=== PATIENT | female | born 1995 | race Caucasian/White ===

== ENCOUNTER 2017-07-16 23:42 | Emergency (ER) | payer OTHER | END 2017-07-17 00:57 | disposition left against medical advice (07) | LOC: ER 23:42 | DX: Z53.9 Procedure and treatment not carried out, unspecified reason (principal); R10.9 Unspecified abdominal pain ==

== ENCOUNTER 2017-07-17 11:45 | Emergency (ER) | payer MEDICAID, OTHER ==
[2017-07-17 12:25] LABS: APPEARANCE,URINE SLIGHTLY-CLOUDY; BILIRUBIN,URINE NEGATIVE (NEGATIVE); GLUCOSE, URINE NEGATIVE (NEGATIVE); KETONES,URINE NEGATIVE (NEGATIVE); LEUKOCYTE ESTERASE,URINE NEGATIVE (NEGATIVE); NITRITE,URINE NEGATIVE (NEGATIVE); PROTEIN,URINE NEGATIVE (NEGATIVE); UROBILINOGEN,URINE NEGATIVE mg/dL (<2.0)
[2017-07-17 12:33] LABS: ABSOLUTE BASOPHILS # (AUTO) 0.1 10^3/uL (0.0-0.2); ABSOLUTE EOSINOPHILS # (AUTO) 0.1 10^3/uL (0.0-0.6); ABSOLUTE LYMPHOCYTES (AUTO) 2.3 10^3/uL (0.5-4.7); ABSOLUTE MONOCYTES (AUTO) 0.4 10^3/uL (0.1-1.4); ABSOLUTE NEUT (AUTO) 4.1 10^3/uL (1.7-8.2); EOSINOPHILS % (AUTO) 1.9 % (0-6); HEMATOCRIT 39.9 % (36.0-47.0); HEMOGLOBIN 13.9 g/dL (12.0-15.5); HGB HCT DIFFERENCE 1.8; LYMPHOCYTES % (AUTO) 33.1 % (13-45); MEAN CORPUSCULAR HEMOGLOBIN 28.3 pg (27.0-33.4); MEAN CORPUSCULAR VOLUME 81 fl (80-97); RED BLOOD COUNT 4.93 10^6/uL (3.72-5.28); RED CELL DISTRIBUTION WIDTH 13.9 % (11.5-14.0); WHITE BLOOD COUNT 7.1 10^3/uL (4.0-10.5)
[2017-07-17 12:45] LABS: ALANINE AMINOTRANSFERASE 35 U/L (9-52); ALBUMIN 4.1 g/dL (3.5-5.0); ALKALINE PHOSPHATASE 63 U/L (38-126); ANION GAP 10 (5-19); ASPARTATE AMINO TRANSFERASE 15 U/L (14-36); BILIRUBIN,DIRECT 0.3 mg/dL (0.0-0.4); BILIRUBIN,TOTAL 0.6 mg/dL (0.2-1.3); BLOOD UREA NITROGEN 9 mg/dL (7-20); CALCIUM 9.4 mg/dL (8.4-10.2); CARBON DIOXIDE 28 mmol/L (22-30); CHLORIDE 104 mmol/L (98-107); CREATININE RESULT 0.69 mg/dL (0.52-1.25); GLUCOSE 87 mg/dL (75-110); LIPASE 93.9 U/L (23-300); POTASSIUM 4.8 mmol/L (3.6-5.0); SODIUM 142.3 mmol/L (137-145); TOTAL PROTEIN 6.7 g/dL (6.3-8.2)
--- NOTE | 2017-07-17 13:18 | RADIOLOGY REPORT (SQ) ---
EXAM DESCRIPTION: U/S ABDOMEN LIMITED W/O DOP COMPLETED DATE/TIME: 07/17/2017 1:06 pm REASON FOR STUDY: ruq pain COMPARISON: None. TECHNIQUE: Dynamic and static grayscale images acquired of the abdomen and recorded on PACS. Additio nal selected color Doppler and spectral images recorded. LIMITATIONS: None. FINDINGS: PANCREAS: No masses. Visualized pancreatic duct normal caliber. LIVER: No masses. Echotexture normal. LIVER VASCULATURE: Normal blood flow is identified in the portal vein. GALLBLADDER: No stones. Normal wall thickness. No pericholecystic fluid. ULTRASOUND-DETECTED SANDOVAL'S SIGN: Negative. INTRAHEPATIC DUCTS AND COMMON DUCT: CBD and intrahepatic ducts normal caliber. No filling defects. INFERIOR VENA CAVA: Normal flow. AORTA: No aneurysm. RIGHT KIDNEY: Normal size. Normal echogenicity. No solid or suspicious masses. No hydronephrosis. No calcifications. PERITONEAL AND RIGHT PLEURAL SPACE: No ascites or effusions. OTHER: No other significant findings. IMPRESSION: NORMAL RIGHT UPPER QUADRANT ULTRASOUND. TECHNICAL DOCUMENTATION: JOB ID: [id number] [employer]- All Rights Reserved
[2017-07-17 13:24] VITALS: BP 121/69
--- NOTE | 2017-07-17 13:32 | ER Document Report ---
ED General - General Chief Complaint: Abdominal Pain Stated Complaint: STOMACH PAIN Time Seen by Provider: 07/17/17 12:04 TRAVEL OUTSIDE OF THE [place]. IN LAST 30 DAYS: No - HPI Patient complains to provider of: Abdominal pain Notes: Patient coming in today from local urgent care after experiencing mid epigastric abdominal pain ongoing for greater than a week patient states that as soon as she eats something she will have pain and nausea patient denies any fevers or chills denies any diarrhea. Patient states she has never seen a television newscast director. Patient otherwise looks very healthy no signs of any acute distress upon my evaluation. No recent antibiotics - Related Data Allergies/Adverse Reactions: latex [Latex] Allergy (Unknown, Verified 07/17/17 11:50) Hives Past Medical History - Social History Smoking Status: Unknown if Ever Smoked Family History: Reviewed & Not Pertinent - Past Medical History Cardiac Medical History: Denies: Hx Heart Attack, Hx Hypertension, Hx Pulmonary Embolism Pulmonary Medical History: Reports: Hx Asthma - Seasonal Denies: Hx Sleep Apnea, Hx Tuberculosis Neurological Medical History: Denies: Hx Cerebrovascular Accident, Hx Seizures Renal/ Medical History: Denies: Hx Kidney Stones, Hx Peritoneal Dialysis GI Medical History: Denies: Hx Gastroesophageal Reflux Disease, Hx Hepatitis, Hx Hiatal Hernia, Hx Ulcer Skin Medical History: Reports Hx MRSA - ON BUTTOCKS AND RIGHT FOOT Infectious Medical History: Denies: Hx Hepatitis Past Surgical History: Reports: Hx Section - X1. Denies: Hx Hysterectomy, Hx Mastectomy, Hx Open Heart Surgery, Hx Pacemaker - Immunizations Immunizations up to date: Yes Hx Diphtheria, Pertussis, Tetanus Vaccination: Yes Review of Systems - Review of Systems Constitutional: No symptoms reported EENT: No symptoms reported Cardiovascular: No symptoms reported Respiratory: No symptoms reported Gastrointestinal: Abdominal pain, Nausea, Vomiting Genitourinary: No symptoms reported Female Genitourinary: No symptoms reported Musculoskeletal: No symptoms reported Skin: No symptoms reported Hematologic/Lymphatic: No symptoms reported Neurological/Psychological: No symptoms reported -: Yes All other systems reviewed and negative Physical Exam - Vital signs Vitals: Temp Pulse Resp BP Pulse Ox 97.5 F 86 18 124/80 100 07/17/17 11:50 07/17/17 11:50 07/17/17 11:50 07/17/17 11:50 07/17/17 11:50 Interpretation: Normal - General General appearance: Appears well, Alert - HEENT Head: Normocephalic, Atraumatic Eyes: Normal Pupils: PERRL - Respiratory Respiratory status: No respiratory distress Chest status: Nontender Breath sounds: Normal Chest palpation: Normal - Cardiovascular Rhythm: Regular Heart sounds: Normal auscultation Murmur: No - Abdominal Inspection: Normal Distension: No distension Bowel sounds: Normal Tenderness: Nontender Organomegaly: No organomegaly - Back Back: Normal, Nontender - Extremities General upper extremity: Normal inspection, Nontender, Normal color, Normal ROM , Normal temperature General lower extremity: Normal inspection, Nontender, Normal color, Normal ROM , Normal temperature, Normal weight bearing. No: Reji's sign - Neurological Neuro grossly intact: Yes Cognition: Normal Orientation: AAOx4 Merlyn Coma Scale Eye Opening: Spontaneous Merlyn Coma Scale Verbal: Oriented Rush Coma Scale Motor: Obeys Commands Rush Coma Scale Total: 15 Speech: Normal Motor strength normal: LUE, RUE, LLE, RLE Sensory: Normal - Psychological Associated symptoms: Normal affect, Normal mood - Skin Skin Temperature: Warm Skin Moisture: Dry Skin Color: Normal Course - Re-evaluation Re-evalutation: 07/17/17 13:32 The patient presents with abdominal pain without signs of peritonitis or other life-threatening or serious etiology. The patient appears stable for discharge and has been instructed to return immediately if the symptoms worsen in any way , or in 8-12hr if not improved for re-evaluation. The patient has been instructed to return if the symptoms worsen or change in any way. Symptoms are more consistent with a gastritis or possible early peptic ulcer disease. Patient was highly encouraged to follow-up with a GI specialist. We will start the patient on Reglan Carafate and PPI. Patient states understanding will be discharged home. - Vital Signs Vital signs: Temp Pulse Resp BP Pulse Ox 98.1 F 87 18 121/69 99 07/17/17 13:23 07/17/17 13:23 07/17/17 11:50 07/17/17 13:23 07/17/17 13:23 - Laboratory Result Diagrams: 07/17/17 12:18 07/17/17 12:18 Discharge - Discharge Clinical Impression: Abdominal pain Qualifiers: Abdominal location: unspecified location Qualified Code(s): R10.9 - Unspecified abdominal pain Condition: Good Disposition: HOME, SELF-CARE Instructions: Abdominal Pain ([facility]), Gastritis ([facility]), Gastroenterology Additional Instructions: Your laboratory studies and ultrasound today are negative for any signs of acute infection or GI issue. I do believe her symptoms more likely coming from her stomach unfortunately we do not have a good way to diagnose issues with your stomach here in the ER. I recommend following up with a GI specialist. Please take medications as prescribed these will treat any underlying gastritis or peptic ulcer disease which may be causing her issues. Return to the ER symptoms worsen. Prescriptions: Metoclopramide HCl [Reglan] 5 mg PO Q6 #30 tablet Omeprazole 20 mg PO DAILY #30 capsule. Sucralfate [Carafate 1 gm Tablet] 1 gm PO ACHS #120 tablet Forms: Return to Work
== END 2017-07-17 13:34 | disposition home or self-care (01) ==
LOC: ER 11:45
DX: R10.13 Epigastric pain (principal); R11.2 Nausea with vomiting, unspecified; J45.909 Unspecified asthma, uncomplicated; Z91.040 Latex allergy status; Z86.14 Personal history of Methicillin resistant Staphylococcus aureus infection
CPT/HCPCS: 36415; 76705; 80053; 81001; 81025; 83690; 85025; 99284

== ENCOUNTER 2017-11-27 12:53 | Emergency (ER) | payer MEDICAID ==
[2017-11-27] MEDS ORDERED: ONDANSETRON 4 MG TAB.RAPDIS PO ONE (13:19)
[2017-11-27] MEDS ORDERED: RINGERS SOLUTION,LACTATED 1,000 ML IV ONE (13:19)
--- NOTE | 2017-11-27 13:21 | ER Document Report ---
ED Medical Screen (RME) - General Chief Complaint: OB Problem (<20wks) Stated Complaint: VAGINAL BLEEDING Time Seen by Provider: 11/27/17 13:16 Notes: RME DISCLOSURE I have seen this patient as part of a Rapid Medical Evaluation and, if applicable, placed any initially appropriate orders. The patient will be seen and fully evaluated, including a full history and physical exam, by a provider ( in Main ED or Fast Track) when a room becomes available. 22-year-old female here with complaints of vaginal spotting ongoing for the past few days as well as nausea/vomiting ongoing for the past few weeks. She has had the nausea and vomiting in her previous 2 pregnancies and was able to taken antiemetic but does not remember the name of it. She has not taken anything for the symptoms. She does not have any abdominal pain. TRAVEL OUTSIDE OF THE U.S. IN LAST 30 DAYS: No - Related Data Allergies/Adverse Reactions: latex [Latex] Allergy (Unknown, Verified 11/27/17 12:57) Hives Past Medical History - Social History Chew tobacco use (# tins/day): No Frequency of alcohol use: None Drug Abuse: None - Past Medical History Cardiac Medical History: Denies: Hx Heart Attack, Hx Hypertension, Hx Pulmonary Embolism Pulmonary Medical History: Reports: Hx Asthma - Seasonal Denies: Hx Sleep Apnea, Hx Tuberculosis Neurological Medical History: Denies: Hx Cerebrovascular Accident, Hx Seizures Renal/ Medical History: Denies: Hx Kidney Stones, Hx Peritoneal Dialysis GI Medical History: Denies: Hx Gastroesophageal Reflux Disease, Hx Hepatitis, Hx Hiatal Hernia, Hx Ulcer Skin Medical History: Reports Hx MRSA - ON BUTTOCKS AND RIGHT FOOT Infectious Medical History: Denies: Hx Hepatitis Past Surgical History: Reports: Hx Section - X1. Denies: Hx Hysterectomy, Hx Mastectomy, Hx Open Heart Surgery, Hx Pacemaker - Immunizations Immunizations up to date: Yes Hx Diphtheria, Pertussis, Tetanus Vaccination: Yes Physical Exam - Vital signs Vitals: Temp Pulse Resp BP Pulse Ox 98.8 F 86 16 134/66 H 100 11/27/17 13:01 11/27/17 13:01 11/27/17 13:01 11/27/17 13:01 11/27/17 13:01 Course - Vital Signs Vital signs: Temp Pulse Resp BP Pulse Ox 98.8 F 86 16 134/66 H 100 11/27/17 13:01 11/27/17 13:01 11/27/17 13:01 11/27/17 13:01 11/27/17 13:01
[2017-11-27] MEDS ORDERED: ONDANSETRON HCL INJ/PF 4 MG/2 ML SDV IV ONE (13:50)
--- NOTE | 2017-11-27 13:51 | ER Document Report ---
ED General - General Chief Complaint: OB Problem (<20wks) Stated Complaint: VAGINAL BLEEDING Time Seen by Provider: 11/27/17 13:16 Mode of Arrival: Ambulatory Information source: Patient TRAVEL OUTSIDE OF THE [place]. IN LAST 30 DAYS: No - HPI Notes: 22-year-old female who is 7 weeks presents today for complaints of vaginal spotting 1 day. Patient states spotting has decreased today. Patient denies any pelvic or vaginal pain. Last menstrual period was September. Patient is taking all prenatals. Denies any trauma to pelvis. Pt eating and drinking without issues. Denies fevers, chills, chest pain, palpitations, shortness of breath, dyspnea, nausea, vomiting, diarrhea, abdominal pain, hematuria,blurred vision, double vision, loss of vision, speech changes, LH, dizziness, syncope, headaches, wheezing, ST, URI, neck pain, weakness, bowel or bladder dysfunction, saddle anesthesia, numbness or tingling in bilateral upper or lower extremities equally, muscle paralysis, weakness in bilateral upper or lower extremities equally or rash. Denies IV drug use. - Related Data Allergies/Adverse Reactions: latex [Latex] Allergy (Unknown, Verified 11/27/17 12:57) Hives Past Medical History - General Information source: Patient - Social History Smoking Status: Never Smoker Chew tobacco use (# tins/day): No Frequency of alcohol use: None Drug Abuse: None Family History: Reviewed & Not Pertinent Patient has suicidal ideation: No Patient has homicidal ideation: No - Past Medical History Cardiac Medical History: Denies: Hx Heart Attack, Hx Hypertension, Hx Pulmonary Embolism Pulmonary Medical History: Reports: Hx Asthma - Seasonal Denies: Hx Sleep Apnea, Hx Tuberculosis Neurological Medical History: Denies: Hx Cerebrovascular Accident, Hx Seizures Renal/ Medical History: Denies: Hx Kidney Stones, Hx Peritoneal Dialysis GI Medical History: Denies: Hx Gastroesophageal Reflux Disease, Hx Hepatitis, Hx Hiatal Hernia, Hx Ulcer Skin Medical History: Reports Hx MRSA - ON BUTTOCKS AND RIGHT FOOT Infectious Medical History: Denies: Hx Hepatitis Past Surgical History: Reports: Hx Section - X1. Denies: Hx Hysterectomy, Hx Mastectomy, Hx Open Heart Surgery, Hx Pacemaker - Immunizations Immunizations up to date: Yes Hx Diphtheria, Pertussis, Tetanus Vaccination: Yes Review of Systems - Review of Systems Notes: REVIEW OF SYSTEMS: CONSTITUTIONAL : Denies fever, chills, or sweats. Denies recent illness. EENT: Denies eye, ear, throat, or mouth pain or symptoms. Denies nasal or sinus congestion or discharge. Denies throat, tongue, or mouth swelling or difficulty swallowing. CARDIOVASCULAR: Denies chest pain. Denies palpitations or racing or irregular heart beat. Denies ankle edema. RESPIRATORY: Denies cough, cold, or chest congestion. Denies shortness of breath, difficulty breathing, or wheezing. GASTROINTESTINAL: Denies abdominal pain or distention. Denies nausea, vomiting , or diarrhea. Denies blood in vomitus, stools, or per rectum. Denies black, tarry stools. Denies constipation. GENITOURINARY: Denies difficulty urinating, painful urination, burning, frequency, blood in urine, or discharge. FEMALE GENITOURINARY: reports vaginal spotting. Denies heavy or abnormal periods, irregular periods. Denies vaginal discharge or odor. MUSCULOSKELETAL: Denies back or neck pain or stiffness. Denies joint pain or swelling. SKIN: Denies rash, lesions or sores. HEMATOLOGIC : Denies easy bruising or bleeding. LYMPHATIC: Denies swollen, enlarged glands. NEUROLOGICAL: Denies confusion or altered mental status. Denies passing out or loss of consciousness. Denies dizziness or lightheadedness. Denies headache. Denies weakness or paralysis or loss of use of either side. Denies problems with gait or speech. Denies sensory loss, numbness, or tingling. Denies seizures. PSYCHIATRIC: Denies anxiety or stress. Denies depression, suicidal ideation, or homicidal ideation. ALL OTHER SYSTEMS REVIEWED AND NEGATIVE. PHYSICAL EXAMINATION: GENERAL: Well-appearing, well-nourished and in no acute distress. HEAD: Atraumatic, normocephalic. EYES: Pupils equal round and reactive to light, extraocular movements intact, conjunctiva are normal. ENT: Nares patent, oropharynx clear without exudates. Moist mucous membranes. NECK: Normal range of motion, supple without lymphadenopathy LUNGS: Breath sounds clear to auscultation bilaterally and equal. No wheezes rales or rhonchi. HEART: Regular rate and rhythm without murmurs ABDOMEN: Soft, nontender, nondistended abdomen. No guarding, no rebound. No masses appreciated. Female :External genitalia without erythema, exudate or discharge. Vaginal vault is without discharge. Cervix is of normal color without lesion. There is no bleeding noted. Uterus is noted to be of normal size and nontender. No cervical motion tenderness is seen. No masses are palpated. Musculoskeletal: Normal range of motion, no pitting or edema. No cyanosis. NEUROLOGICAL: Cranial nerves grossly intact. Normal speech, normal gait. Normal sensory, motor exams PSYCH: Normal mood, normal affect. SKIN: Warm, Dry, normal turgor, no rashes or lesions noted. Dictation was performed using [employer] voice recognition software Physical Exam - Vital signs Vitals: Temp Pulse Resp BP Pulse Ox 98.8 F 86 16 134/66 H 100 11/27/17 13:01 11/27/17 13:01 11/27/17 13:11/27/17 13:01 11/27/17 13:01 Course - Re-evaluation Re-evalutation: 11/27/17 16:13 Healthy 22-year-old female who is roughly 7 weeks presents today for complaints of vaginal spotting that started yesterday. CBC unremarkable for any anemia or leukocytosis. CMP shows dysfunction with renal or liver abnormalities. Electrolytes are within normal range. Wet mount does show the patient has bacterial vaginosis. Patient is asymptomatic for bacterial vaginosis. Transvaginal ultrasound shows a patient does have a intrauterine with a heart rate of 135. Patient is O+, no gram needed. Quantitative hCG 111,780. Because these results with patients. Advised her to follow-up with her [employer] SALESPERSON and her primary care provider within 3 days. Since patient is having asymptomatic bacterial vaginosis, will not treat at this time due to patient being . Because findings with patient, all questions and concerns answered by this provider. Patient verbalized understanding of this plan of care and agree with plan of care. Patient was discharged home. 11/27/17 17:14 - Vital Signs Vital signs: Temp Pulse Resp BP Pulse Ox 98.8 F 86 16 134/66 H 100 11/27/17 13:01 11/27/17 13:01 11/27/17 13:01 11/27/17 13:01 11/27/17 13:01 - Laboratory Laboratory results interpreted by me: 11/27/17 11/27/17 13:40 14:11 Beta HCG, Quant [id number] H Urine Ascorbic Acid 40 H Discharge - Discharge Instructions: (OM) Additional Instructions: You are . care is best started as early in as possible. If you're unsure about continuing this , you should discuss this with your physician or with highway patrol pilot at [facility]. You should take only medications approved by your physician. Acetaminophen can safely be taken for minor pains. As a rule, medication for chronic conditions such as asthma or seizures can safely be continued. You should discuss with the physician every medicine you take. Any regular exercise program can be continued. Talk to your physician, however, before engaging in competitive or demanding sports. Alcohol, smoking, and "street drugs" are dangerous to your baby. Cocaine is especially dangerous. Don't use any illicit drugs! Vaginosis, Bacterial Your exam shows you have bacterial vaginosis. This condition is due to an overgrowth of bacteria in the vagina. Symptoms may include vaginal itching or pain, a smelly discharge, and sometimes burning with urination. Normally this is not transmitted by sexual contact. Vaginosis can be treated with oral or topical antibiotics. Metronidazole ( Flagyl) pills are usually effective. Topical vaginal creams include Cleocin and Metro-Gel. You should avoid sexual contact until your symptoms are all better. YOU ARE NOT SYMPTOMATIC, WILL NOT TREAT DUE TO . Call the doctor if you develop pelvic pain, fever, or problems with urination, or if you don't improve as expected. Follow-up with [employer] SAL[employer]ERSON within 3 days as well as PCP. Increase oral hydration. Take prenatals as you have been doing. Return to the ER if symptoms become worse. Return immediately for any new or worsening symptoms. Follow up with primary care provider, call tomorrow to make followup appointment. Prescriptions: Pnv No.95/Ferrous Fum/Folic AC [ Tablet] 1 each PO DAILY #30 tablet Referrals: YASSINE BARRON MD [ACTIVE STAFF] - Follow up in 3-5 days DAYANNA RIOS MD [Primary Care Provider] - Follow up in 3-5 days
[2017-11-27 13:52] LABS: AMORPHOUS SEDIMENT,URINE TRACE /HPF; APPEARANCE,URINE CLOUDY; BILIRUBIN,URINE NEGATIVE (NEGATIVE); COLOR,URINE YELLOW; GLUCOSE, URINE NEGATIVE (NEGATIVE); KETONES,URINE NEGATIVE (NEGATIVE); LEUKOCYTE ESTERASE,URINE NEGATIVE (NEGATIVE); NITRITE,URINE NEGATIVE (NEGATIVE); PROTEIN,URINE NEGATIVE (NEGATIVE); URINE SPECIFIC GRAVITY 1.015; UROBILINOGEN,URINE NEGATIVE mg/dL (<2.0)
[2017-11-27] MEDS ORDERED: NORMAL SALINE 1000 ML 1,000 ML IV ONE (14:25)
[2017-11-27 16:07] LABS: BACTERIA (WET MOUNT) 3+ BACTERIA SEEN; EPITHELIALS (WET MOUNT) 3+ EPITHELIALS SEEN; T.VAGINALIS (WET MOUNT) NO TRICHOMONAS SEEN; WBCS (WET MOUNT) RARE WBCS SEEN; YEAST (WET MOUNT) NO YEAST SEEN
--- NOTE | 2017-11-27 16:11 | RADIOLOGY REPORT (SQ) ---
EXAM DESCRIPTION: U/S OB TRANSVAGINAL W/O DOP COMPLETED DATE/TIME: 11/27/2017 4:00 pm REASON FOR STUDY: vag spotting; eval ectopic miscarriage COMPARISON: None. TECHNIQUE: Transvaginal static and realtime grayscale images acquired of the pelvis. Additional radha cted spectral and color Doppler images recorded. All images stored on PACs. bHC,780. LIMITATIONS: None. FINDINGS: FETUS: Living intrauterine . EGA: 7 week. VIRIDIAAN: 07/16/2018. FHR: 135 beats per minute. SUBCHORIONIC BLEED: No. SIZE OF BLEED: Not applicable. UTERUS: No masses. No anomalies. CERVICAL LENGTH: 3.4 cm. Closed. RIGHT ADNEXA: Normal ovary with normal vascular flow. No adnexal free fluid. No adnexal masses. LEFT ADNEXA: Normal ovary with normal vascular flow. Trace/small amount adnexal free fluid. No adnexal masses. FREE FLUID: None. OTHER: No other significant finding. IMPRESSION: LIVING INTRAUTERINE . EGA 7 WEEK. Trimester of : First - 0 to 13 weeks. TECHNICAL DOCUMENTATION: JOB ID: [id number] [employer]- All Rights Reserved Reading location - IP/workstation name: [email or web address]
[2017-11-27 17:15] LABS: CHLAM PCR NOT DETECTED (NOT DETECT); GON PCR NOT DETECTED (NOT DETECT)
[2017-11-27 17:30] VITALS: BP 130/67
== END 2017-11-27 17:30 | disposition home or self-care (01) ==
LOC: ER 12:53
DX: O23.591 Infection of other part of genital tract in pregnancy, first trimester (principal); B96.89 Other specified bacterial agents as the cause of diseases classified elsewhere; O26.851 Spotting complicating pregnancy, first trimester; O99.511 Diseases of the respiratory system complicating pregnancy, first trimester; J45.909 Unspecified asthma, uncomplicated; Z3A.01 Less than 8 weeks gestation of pregnancy
CPT/HCPCS: 99284; 96361; 96374; 86900; 86901; 36415; 87210; 84702; 81001; 87491; 87591; 76817; J2405; J7030

== ENCOUNTER 2018-05-27 22:08 | Outpatient (CLI) | payer MEDICAID ==
[2018-05-27 23:06] LABS: APPEARANCE,URINE CLEAR; BILIRUBIN,URINE NEGATIVE (NEGATIVE); COLOR,URINE STRAW; GLUCOSE, URINE NEGATIVE (NEGATIVE); KETONES,URINE NEGATIVE (NEGATIVE); LEUKOCYTE ESTERASE,URINE NEGATIVE (NEGATIVE); NITRITE,URINE NEGATIVE (NEGATIVE); PROTEIN,URINE NEGATIVE (NEGATIVE); URINE SPECIFIC GRAVITY 1.008; UROBILINOGEN,URINE NEGATIVE mg/dL (<2.0)
[2018-05-27 23:08] LABS: URINE AMPHETAMINES SCREEN NEGATIVE; URINE BARBITURATES SCREEN NEGATIVE; URINE BENZODIAZEPINES SCREEN NEGATIVE; URINE COCAINE SCREEN NEGATIVE; URINE MARIJUANA (THC) SCREEN NEGATIVE; URINE METHADONE SCREEN NEGATIVE; URINE PHENCYCLIDINE SCREEN NEGATIVE
--- NOTE | 2018-05-28 00:44 | RADIOLOGY REPORT (SQ) ---
EXAM DESCRIPTION: US LIMITED COMPLETED DATE/TME: 05/27/2018 00:00 CLINICAL HISTORY: 23 years, Female, labor. 10/04/2017 COMPARISON: None. TECHNIQUE: Limited third trimester obstetrical ultrasound FINDINGS: Cervical length 2.7 cm and closed. position: Vertex LVP: 3.6 cm heart rate: 162 bpm. Placenta: Anterior, no definite abnormalities. IMPRESSION: 1. Single live intrauterine with heart rate of 162 bpm. Measurements as above. 2010 [employer]- All Rights Reserved
--- NOTE | 2018-05-28 01:09 | Non Stress Test Report ---
Non Stress Test Datetime Report Generated by CPN: 05/28/2018 01:09 DEMOGRAPHIC EGA NST: 33.2 INDICATION Indication for Study: Ordered by Provider MONITORING Monitor Explained: Monitor Explained; Test Explained; Patient Verbalized Understanding Time on Monitor: 05/27/2018 22:30 Time off Monitor: 05/27/2018 23:10 NST Duration: 40 NST INTERVENTIONS NST Interventions: Reposition Patient Physician Notified NST: Dr. Ferris BABY A: [id number] BABY A Movement : Present Contraction Frequency : none FHR Baseline : 135 Accelerations : 15X15 Decelerations : None Variability : Moderate 6-25bpm NST Review: Meets Criteria for Reactive NST NST Review and Verified By : Zuhair Miller RN NST Results: Reactive NST REPORT Report Trigger: Send Report
== END 2018-05-28 01:04 | disposition home or self-care (01) ==
LOC: LC 22:08
PROVIDERS: ATTEND Obstetrics & Gynecology
DX: O47.1 False labor at or after 37 completed weeks of gestation (principal); Z3A.33 33 weeks gestation of pregnancy
CPT/HCPCS: 76815; 80307; 81001

== ENCOUNTER 2018-06-21 23:00 | Outpatient (CLI) | payer MEDICAID ==
[2018-06-21 23:50] LABS: APPEARANCE,URINE CLEAR; BILIRUBIN,URINE NEGATIVE (NEGATIVE); COLOR,URINE YELLOW; GLUCOSE, URINE NEGATIVE (NEGATIVE); KETONES,URINE NEGATIVE (NEGATIVE); LEUKOCYTE ESTERASE,URINE NEGATIVE (NEGATIVE); NITRITE,URINE NEGATIVE (NEGATIVE); PROTEIN,URINE NEGATIVE (NEGATIVE); URINE SPECIFIC GRAVITY 1.015; UROBILINOGEN,URINE NEGATIVE mg/dL (<2.0)
[2018-06-22 00:02] LABS: URINE AMPHETAMINES SCREEN NEGATIVE; URINE BARBITURATES SCREEN NEGATIVE; URINE BENZODIAZEPINES SCREEN NEGATIVE; URINE COCAINE SCREEN NEGATIVE; URINE MARIJUANA (THC) SCREEN NEGATIVE; URINE METHADONE SCREEN NEGATIVE; URINE PHENCYCLIDINE SCREEN NEGATIVE
--- NOTE | 2018-06-25 11:17 | Non Stress Test Report ---
Non Stress Test Datetime Report Generated by CPN: 06/25/2018 11:17 DEMOGRAPHIC Test Number: 2 EGA NST: 37.1 INDICATION Indication for Study: Ordered by Provider URINE RESULTS Urine Protein, NST: Negative Urine Ketones - NST: Negative Urine Glucose - NST: Negative Urine Blood - NST: Negative MONITORING Monitor Explained: Monitor Explained; Test Explained; Patient Verbalized Understanding Time on Monitor: 06/21/2018 23:25 Time off Monitor: 06/22/2018 00:13 NST Duration: 48 NST INTERVENTIONS NST Interventions: PO Hydration; Reposition Patient Physician Notified NST: Dr. Reveles BABY A: [id number] BABY A Movement : Present Contraction Frequency : x1 FHR Baseline : 135 Accelerations : 15X15 Decelerations : None Variability : Moderate 6-25bpm NST Review: Meets Criteria for Reactive NST NST Review and Verified By : Luz Hammer RN NST Results: Reactive NST REPORT Report Trigger: Send Report (Annotations: Data stored by N on behalf of user)
== END 2018-06-22 00:30 | disposition home or self-care (01) ==
LOC: LC 23:00
PROVIDERS: ATTEND Obstetrics & Gynecology Gynecology
PROC: 4A1HXCZ Monitoring of Products of Conception, Cardiac Rate, External Approach (ICD-10-PCS; principal; 2018-06-21)
DX: O47.1 False labor at or after 37 completed weeks of gestation (principal); Z3A.37 37 weeks gestation of pregnancy
CPT/HCPCS: 59025; 80307; 81001

== ENCOUNTER 2018-06-25 11:19 | Outpatient (CLI) | payer MEDICAID ==
[2018-06-25 12:15] LABS: APPEARANCE,URINE SLIGHTLY-CLOUDY; BILIRUBIN,URINE NEGATIVE (NEGATIVE); COLOR,URINE YELLOW; GLUCOSE, URINE NEGATIVE (NEGATIVE); KETONES,URINE NEGATIVE (NEGATIVE); LEUKOCYTE ESTERASE,URINE MODERATE (NEGATIVE); NITRITE,URINE NEGATIVE (NEGATIVE); PROTEIN,URINE NEGATIVE (NEGATIVE); URINE SPECIFIC GRAVITY 1.006; UROBILINOGEN,URINE NEGATIVE mg/dL (<2.0)
--- NOTE | 2018-06-25 12:23 | L&D Progress Notes ---
PROGRESS NOTES Datetime Report Generated by CPN: 06/25/2018 12:23 PROGRESS NOTE Comment: here for labor check, sporadic care, has appt at [facility] in AM for anatomy scan and schedule C/S, back hurts, does not appear in pain, abd soft, Cat 1 strip, irreg uc's, waiting for UA results SIGNATURE SIGNATURE: [id number] SIGNATURE: [id number] SIGNATURE: [id number] Assignment: Yuriy Reveles MD Signature: with User ID: [email or web address] : with User ID: Irvin
[2018-06-25 12:40] LABS: URINE AMPHETAMINES SCREEN NEGATIVE; URINE BENZODIAZEPINES SCREEN NEGATIVE; URINE COCAINE SCREEN NEGATIVE; URINE MARIJUANA (THC) SCREEN NEGATIVE; URINE METHADONE SCREEN NEGATIVE; URINE PHENCYCLIDINE SCREEN NEGATIVE
[2018-06-25 12:43] LABS: URINE BARBITURATES SCREEN NEGATIVE
--- NOTE | 2018-06-25 13:06 | Non Stress Test Report ---
Non Stress Test Datetime Report Generated by CPN: 06/25/2018 13:06 DEMOGRAPHIC EGA NST: 37.5 INDICATION Indication for Study: Other Indication for Study (NST) Other: ordered by provider VITAL SIGNS Temperature - NST: 98.5 Pulse - NST: 106 RESP - NST: 16 NBPSYS NST: 116 NBPDIA NST: 58 URINE RESULTS Urine Protein, NST: Negative Urine Ketones - NST: Negative Urine Glucose - NST: Negative Urine Blood - NST: Positive MONITORING Monitor Explained: Monitor Explained; Test Explained; Patient Verbalized Understanding Time on Monitor: 06/25/2018 11:41 Time off Monitor: 06/25/2018 12:00 NST Duration: 19 NST INTERVENTIONS NST Interventions: Reposition Patient Physician Notified NST: J Dennis, CNM BABY A Movement : Present Contraction Frequency : irregular FHR Baseline : 150 Accelerations : 15X15 Decelerations : None Variability : Moderate 6-25bpm NST Review: Meets Criteria for Reactive NST NST Review and Verified By : Carina Camp RNC NST Results: Reactive NST REPORT Report Trigger: Send Report
== END 2018-06-25 12:58 | disposition home or self-care (01) ==
LOC: LC 11:19
PROVIDERS: ATTEND Obstetrics & Gynecology Gynecology
PROC: 4A1HXCZ Monitoring of Products of Conception, Cardiac Rate, External Approach (ICD-10-PCS; principal; 2018-06-25)
DX: O23.43 Unspecified infection of urinary tract in pregnancy, third trimester (principal); O47.1 False labor at or after 37 completed weeks of gestation; Z3A.37 37 weeks gestation of pregnancy
CPT/HCPCS: 59025; 80307; 81001

== ENCOUNTER 2018-07-06 06:32 | Inpatient (IN) | payer MEDICAID ==
[2018-07-03 11:09] LABS: APPEARANCE,URINE CLOUDY; BILIRUBIN,URINE NEGATIVE (NEGATIVE); COLOR,URINE YELLOW; GLUCOSE, URINE NEGATIVE (NEGATIVE); KETONES,URINE NEGATIVE (NEGATIVE); LEUKOCYTE ESTERASE,URINE LARGE (NEGATIVE); NITRITE,URINE NEGATIVE (NEGATIVE); PROTEIN,URINE NEGATIVE (NEGATIVE); UROBILINOGEN,URINE NEGATIVE mg/dL (<2.0)
[2018-07-03 11:42] LABS: URINE AMPHETAMINES SCREEN NEGATIVE; URINE BARBITURATES SCREEN NEGATIVE; URINE BENZODIAZEPINES SCREEN NEGATIVE; URINE COCAINE SCREEN NEGATIVE; URINE MARIJUANA (THC) SCREEN NEGATIVE; URINE METHADONE SCREEN NEGATIVE; URINE PHENCYCLIDINE SCREEN NEGATIVE
[2018-07-03 11:51] LABS: ABSOLUTE BASOPHILS # (AUTO) 0.1 10^3/uL (0.0-0.2); ABSOLUTE EOSINOPHILS # (AUTO) 0.1 10^3/uL (0.0-0.6); ABSOLUTE LYMPHOCYTES (AUTO) 1.9 10^3/uL (0.5-4.7); ABSOLUTE MONOCYTES (AUTO) 0.5 10^3/uL (0.1-1.4); ABSOLUTE NEUT (AUTO) 8.6 10^3/uL (1.7-8.2); BASOPHILS % (AUTO) 0.5 % (0-2); EOSINOPHILS % (AUTO) 0.5 % (0-6); HEMATOCRIT 32.6 % (36.0-47.0); LYMPHOCYTES % (AUTO) 16.9 % (13-45); MEAN CORPUSCULAR HEMOGLOBIN 26.7 pg (27.0-33.4); MEAN CORPUSCULAR HGB CONC 33.8 g/dL (32.0-36.0); MEAN CORPUSCULAR VOLUME 79 fl (80-97); MONOCYTES % (AUTO) 4.3 % (3-13); PLATELET COUNT 272 10^3/uL (150-450); RED BLOOD COUNT 4.13 10^6/uL (3.72-5.28); RED CELL DISTRIBUTION WIDTH 13.1 % (11.5-14.0); SEGMENTED NEUTROPHILS % (AUTO) 77.8 % (42-78); TOTAL CELLS COUNTED % (AUTO) 100 %; WHITE BLOOD COUNT 11.1 10^3/uL (4.0-10.5)
[~2018-07-06 06:32] MED LIST: CEFAZOLIN 1 GM/D5W RTU 1 GM/50 ML RTUPB IV PRN; LACTATED RINGERS 1000 ML IV PRN; RINGERS SOLUTION,LACTATED 2,000 ML IV PRN
[2018-07-06] MEDS ORDERED: OXYTOCIN 10 UNIT/ML VIAL ONE (09:03)
[2018-07-06] MEDS ORDERED: KETOROLAC TROMETHAMINE INJ/PF 30 MG/1 ML SDV ONE (09:03)
[2018-07-06] MEDS ORDERED: FENTANYL CITRATE INJ/PF 100 MCG/2 ML AMPUL ONE (09:03)
[2018-07-06] MEDS ORDERED: ACETAMINOPHEN 1,000 MG/100 ML RTUPB IV ONE (09:04)
[2018-07-06] MEDS ORDERED: MIDAZOLAM 2 MG/2 ML INJ ONE (09:04)
[2018-07-06] MEDS ORDERED: OXYTOCIN/NORMAL SALINE 20 UNIT/1,000 ML RTUINJ ONE ×2 (09:04→11:23)
[2018-07-06] MEDS ORDERED: METHYLERGONOVINE MALEATE INJ/PF 0.2 MG/1 ML AMPULE ONE (09:04)
[2018-07-06] MEDS ORDERED: ONDANSETRON HCL INJ/PF 4 MG/2 ML SDV ONE (09:04)
[2018-07-06] MEDS ORDERED: EPHEDRINE SULFATE INJ 50 MG/1 ML AMPULE ONE (09:04)
[2018-07-06] MEDS ORDERED: BUPIVACAINE HCL/DEX-WATER/PF 15 MG/2 ML AMPULE ONE (09:11)
[2018-07-06] MEDS ORDERED: CEFAZOLIN INJ 1 GM VIAL ONE (09:18)
[2018-07-06] MEDS ORDERED: MEPERIDINE HCL/PF INJ 25 MG/1 ML DISP.SYRIN IV PRN (09:33)
[2018-07-06] MEDS ORDERED: MORPHINE SULFATE 10 MG/ML INJ IV PRN ×2 (09:33→14:26)
[2018-07-06] MEDS ORDERED: FENTANYL CITRATE INJ/PF 100 MCG/2 ML AMPUL IV PRN ×3 (09:33)
[2018-07-06] MEDS ORDERED: DIPHENHYDRAMINE HCL 50 MG/ML VIAL IV PRN (09:33)
[2018-07-06] MEDS ORDERED: PROMETHAZINE HCL INJ 25 MG/1 ML VIAL IV PRN ×3 (09:33→11:01)
[2018-07-06] MEDS ORDERED: ONDANSETRON HCL INJ/PF 4 MG/2 ML SDV IV PRN (09:33)
[2018-07-06] MEDS ORDERED: OXYCODONE-ACETAMINOPHEN 5-325 MG TABLET PO PRN ×3 (09:33→11:01)
[2018-07-06] MEDS ORDERED: MEASLES,MUMPS&RUBELLA VACC/PF 0.5 ML VIAL SUBCUT PRN (11:01)
[2018-07-06] MEDS ORDERED: OXYTOCIN/NORMAL SALINE 20 UNIT/1,000 ML RTUINJ IV PRN (11:01)
[2018-07-06] MEDS ORDERED: SIMETHICONE 80 MG TAB.CHEW PO PRN (11:01)
[2018-07-06] MEDS ORDERED: DIPH/PERTUSS(ACELL)/TETANUS VAC/PF 0.5 ML SYR (>=10YO) IM PRN (11:01)
[2018-07-06] MEDS ORDERED: ACETAMINOPHEN 325 MG TABLET PO PRN (11:01)
[2018-07-06] MEDS ORDERED: MORPHINE SULFATE 10 MG/ML INJ IM PRN (11:01)
[2018-07-06] MEDS ORDERED: RINGERS SOLUTION,LACTATED 1,000 ML IV PRN (11:01)
--- NOTE | 2018-07-06 11:06 | PDOC DELIVERY SUMMARY ---
Delivery Summary - Maternal Hx : III Hx # Term Pregnancies: 3 Hx Total # of Abortions (Sponateous & Elective): 0 Number of Living Children: 3 VIRIDIANA: 07/11/18 Gestational Age: 39+2 Risk Factors: Previous , Other - asthma; late care Ruptured Membranes: AROM Fluids: Clear - Delivery Presentation: Vertex Heart Rate Monitoring: Done Pre-Operatively Support Person Present: Yes Location: OR : Scheduled Placenta: Within Normal Limits Number of Vessels (Cord): 3 Nuchal Cord: No Delivery of Placenta Date: 07/06/18 Delivery of Placenta Time: 09:49 Estimated Blood Loss: 800 ml - Medications Type of Anesthesia:: Spinal - Infant Assess and Care Baby 1 Female Delivery of Infant Date: 07/06/18 Delivery of Time: 09:48 at 1 minute: 8 at 5 minutes: 9 Preprinted Number On Band: [id number] Infant Skin to Skin: Yes Skin to Skin (Mins): 30 To Nursery At: 10:25 Mode of Transport: Bassinet Delivery Weight: 3,475 Infant Delivery Length: 20.75 in - Delivery Personnel Nursery RN: JENNIE DEE RN: BIPIN HARRELL MD: IRIS MCKINLEY
[2018-07-06] MEDS: FENTANYL CITRATE INJ/PF 100 MCG/2 ML AMPUL ONE ×3 (11:22→12:27)
--- NOTE | 2018-07-06 12:44 | Operative Report ---
Operative Report DATE OF SURGERY: 07/06/18 PREOPERATIVE DIAGNOSIS: 1. Intrauterine at 39-2/7 weeks. 2. section x2. 3. Maternal obesity. 4. Desires permanent sterilization. 5. Asthma. 6. Rh- POSTOPERATIVE DIAGNOSIS: Same OPERATION: 1. Repeat section. 2. Bilateral partial salpingectomy SURGEON: IRIS DELUNA ANESTHESIA: Spinal TISSUE REMOVED OR ALTERED: 1. Placenta. 2. Right and left partial salpinges COMPLICATIONS: None ESTIMATED BLOOD LOSS: 800 ml INTRAOPERATIVE FINDINGS: Female with a cephalic presentation; Apgars 8 at 1, 9 at 5; normal uterus, tubes and ovaries PROCEDURE: Patient was taken to the operating room where spinal anesthesia was administered without difficulty. A Paul catheter was then placed in the patient's bladder. The patient was then prepared and draped in a normal sterile fashion in the dorsal supine position with a leftward tilt. A Pfannenstiel skin incision was then made with scalpel and carried through to the underlying layer of fascia. The fascia was then incised in the midline and the incision was extended laterally with the Mckeon scissors. The superior aspect of the fascial incision was then grasped with Megan clamps, elevated, and underlying rectus muscles were dissected off both bluntly and sharply. Attention was then turned to the inferior aspect of the incision which, in a similar fashion, was grasped, tented up with Megan clamps and the rectus muscles dissected off both bluntly and sharply. Rectus muscles were then in the midline and the peritoneum was identified, tented up and entered sharply with Metzenbaum scissors. The peritoneal incision was then extended superiorly and inferiorly with good visualization of the bladder. The bladder blade was then inserted and the vesicouterine peritoneum identified, grasped with pickups and entered sharply with Metzenbaum scissors. The incision was then extended laterally and the bladder flap created digitally. Bladder blade was then reinserted and the lower uterine segment was incised in a transverse fashion with scalpel. The uterine incision was then extended laterally with the bandage scissors, as well as digitally. The bladder blade was then removed and the 's head delivered atraumatically. Nose mouth were then suctioned with bulb suction and the cord was clamped and cut. The infant was handed off to the awaiting radiographer mammographer. Cord blood was obtained. The placenta was then removed manually, the uterus exteriorized and cleared of all clots and debris. The uterine incision was then repaired with 0 Vicryl in a running, locked fashion. A second layer of 0 chromic was used to imbricate the incision for excellent hemostasis. The bladder flap was then repaired with 3-0 Vicryl in a running fashion. Attention was then turned to the permanent sterilization. The right tube was then grasped with a [place] clamp and a free tie of plain gut was used to ligate the tube and a 3 cm segment was then transected. Hemostasis was noted. Same was done on the left and hemostasis was also noted. Both partial tubes were handed off to the OR tech. Attention was then returned to the patient's abdomen which was copiously irrigated with warm normal saline. Uterus was then returned to the abdomen and the gutters were cleared of all clots and debris. A piece of Interceed was placed over the uterine incision as well as a piece vertically on the anterior surface of the uterus. The peritoneum was closed in a running fashion with 2-0 Vicryl. The fascia was then reapproximated with 0 Vicryl in a running fashion. The subcutaneous fat layer was then closed with 3-0 Vicryl in an interrupted robb. The skin was then closed in a subcuticular fashion with 4-0 Monocryl. The patient tolerated the procedure well. Sponge, lap, needle and instrument counts were correct x2. Patient was given 2 g Ancef prior to starting procedure. The patient was taken to the recovery room in stable condition.
[2018-07-06] MEDS ORDERED: MORPHINE SULFATE 10 MG/ML INJ ONE (13:33)
[2018-07-06] MEDS: OXYCODONE-ACETAMINOPHEN 5-325 MG TABLET PO PRN ×2 (16:27→21:14)
[2018-07-06] MEDS: DOCUSATE SODIUM 100 MG CAPSULE PO SCH (17:24)
[2018-07-06] MEDS: IBUPROFEN 800 MG TABLET PO SCH ×2 (17:25→23:54)
[2018-07-07] MEDS: OXYCODONE-ACETAMINOPHEN 5-325 MG TABLET PO PRN ×3 (04:37→21:12)
[2018-07-07] MEDS: IBUPROFEN 800 MG TABLET PO SCH ×5 (05:58→23:08)
[2018-07-07 06:15] LABS: HEMATOCRIT 28.9 % (36.0-47.0); HEMOGLOBIN 9.9 g/dL (12.0-15.5); MEAN CORPUSCULAR HEMOGLOBIN 26.7 pg (27.0-33.4); MEAN CORPUSCULAR HGB CONC 34.3 g/dL (32.0-36.0); MEAN CORPUSCULAR VOLUME 78 fl (80-97); PLATELET COUNT 208 10^3/uL (150-450); RED BLOOD COUNT 3.71 10^6/uL (3.72-5.28); RED CELL DISTRIBUTION WIDTH 13.3 % (11.5-14.0); WHITE BLOOD COUNT 11.3 10^3/uL (4.0-10.5)
[2018-07-07] MEDS: PRENATAL VITAMIN W DHA CAPSULE PO SCH (09:02)
[2018-07-07] MEDS: DOCUSATE SODIUM 100 MG CAPSULE PO SCH ×2 (09:02→17:36)
--- NOTE | 2018-07-07 09:11 | PDOC PROGRESS REPORT ---
Subjective-OB Progress Note for:: 07/07/18 Subjective: Doing better, sitting on side of bed, passing gas, eating well, using inspirometer Physical Exam (OB) Vital Signs: Temp Pulse Resp BP Pulse Ox 98.1 F 86 18 113/64 98 07/07/18 08:03 07/07/18 08:03 07/07/18 08:03 07/07/18 08:03 07/07/18 08:03 Intake & Output 07/06/18 07/07/18 07/08/18 06:59 06:59 06:59 Intake Total 4340 Output Total 3475 Balance 865 Weight 109.769 kg - PIH/Pre-Eclampsia DTR's: 2 + Clonus: Negative Headache: Absent Epigastric Pain: No Visual Changes: No - Dressing Removed: - opsite Incision: Dressing, Well Approximated Closure Type: medipore - Lochia Lochia Amount: Scant < 10 ml Lochia Color: Rubra/Red - Abdomen Description: Soft Hernia Present: No Fundal Description: Firm, Midline Fundal Height: u/u - u/2 Objective-Diagnostic Laboratory: 07/07/18 06:09 07/07/18 06:09 WBC 11.3 H RBC 3.71 L Hgb 9.9 L Hct 28.9 L MCV 78 L MCH 26.7 L MCHC 34.3 RDW 13.3 Plt Count 208 Assessment and Plan(PN) - Assessment and Plan (1) delivery delivered Is this a current diagnosis for this admission?: Yes (2) Obesity complicating Qualifiers: Trimester: first trimester Qualified Code(s): O99.211 - Obesity complicating , first trimester Is this a current diagnosis for this admission?: Yes (3) Positive GBS test Is this a current diagnosis for this admission?: Yes - Time Spent with Patient Time with patient: Less than 15 minutes Medications reviewed and adjusted accordingly: Yes - Disposition Anticipated Discharge: Home Within: within 48 hours
[2018-07-08] MEDS: IBUPROFEN 800 MG TABLET PO SCH ×2 (05:08→12:54)
[2018-07-08] MEDS: DOCUSATE SODIUM 100 MG CAPSULE PO SCH (09:35)
[2018-07-08] MEDS: PRENATAL VITAMIN W DHA CAPSULE PO SCH (09:35)
--- NOTE | 2018-07-08 10:23 | PDOC DISCHARGE SUMMARY ---
Final Diagnosis Discharge Date: 07/08/18 - POD #2, doing well, desires to go home today, brestfeeding, O+, rubella Immune - Final Diagnosis (1) Normal course Is this a current diagnosis for this admission?: Yes (2) delivery delivered Is this a current diagnosis for this admission?: Yes (3) Obesity complicating Is this a current diagnosis for this admission?: Yes (4) Positive GBS test Is this a current diagnosis for this admission?: Yes Discharge Data - Discharge Medication Prescriptions: Ibuprofen [Motrin 800 mg Tablet] 800 mg PO Q6 #60 tablet Vit/Dha [ Multi + Dha Capsule] 1 cap PO DAILY #30 capsule Home Medications: Vits96/Iron Fum/Folic [ Tablet] 1 tab PO DAILY 12/17/14 Ibuprofen [Motrin 800 mg Tablet] 800 mg PO Q6 #60 tablet 07/08/18 Oxycodone HCl/Acetaminophen [Percocet 5-325 mg Tablet] 1 tab PO Q4HP PRN #30 tablet 07/08/18 Vit/Dha [ Multi + Dha Capsule] 1 cap PO DAILY #30 capsule 07/08 Reason(s) for Admission: Ceasarean Section-Repeat Procedures: Ultrasound Intrapartum Procedure(s): : Low Cervical, Transverse - Diagnosis Test Laboratory: Temp Pulse Resp BP Pulse Ox 98.3 F 86 22 H 133/60 H 98 07/08/18 08:12 07/08/18 08:12 07/08/18 08:12 07/08/18 08:12 07/08/18 08:12 07/03/18 07/03/18 07/07/18 10:25 11:19 06:09 RBC 4.13 3.71 L Hgb 11.0 L 9.9 L Hct 32.6 L 28.9 L Urine Opiates Screen NEGATIVE - Discharge information/Instructions Discharge Activity: Activity As Tolerated, No Driving, No Lifting Over 10 Pounds , Pelvic Rest Discharge Diet: As Tolerated, Regular Disposition: HOME, SELF-CARE Follow up with: [facility] in: 1, Weeks - for an incision check
[2018-07-08 11:46] VITALS: BP 123/77
== END 2018-07-08 15:33 | disposition home or self-care (01) | DRG 784 ==
LOC: 2S 06:32
PROVIDERS: ADMIT Obstetrics & Gynecology; ATTEND Obstetrics & Gynecology
PROC: 0UB70ZZ Excision of Bilateral Fallopian Tubes, Open Approach (ICD-10-PCS; 2018-07-06)
PROC: 10D00Z1 Extraction of Products of Conception, Low, Open Approach (ICD-10-PCS; principal; 2018-07-06 09:15)
PROC: 3E0234Z Introduction of Serum, Toxoid and Vaccine into Muscle, Percutaneous Approach (ICD-10-PCS; 2018-07-08)
DX: O34.211 Maternal care for low transverse scar from previous cesarean delivery (principal); O36.0930 Maternal care for other rhesus isoimmunization, third trimester, not applicable or unspecified; N85.8 Other specified noninflammatory disorders of uterus; O99.214 Obesity complicating childbirth; O99.824 Streptococcus B carrier state complicating childbirth; O99.52 Diseases of the respiratory system complicating childbirth; O99.344 Other mental disorders complicating childbirth; Z3A.39 39 weeks gestation of pregnancy; Z37.0 Single live birth; Z30.2 Encounter for sterilization; Z23 Encounter for immunization
CPT/HCPCS: 1961; 36415; 80307; 81001; 85025; 85027; 86850; 86900; 86901; 88302; 90471; 90686; 90715; 94799; C1765; G0008; J0131; J0690; J1885; J2210; J2250; J2270; J2405; J2590; J3010; J3490; J7120

== ENCOUNTER 2019-03-09 17:57 | Emergency (ER) | payer MEDICAID ==
--- NOTE | 2019-03-09 18:17 | ER Document Report ---
Addendum entered and electronically signed by ALEX ROMAN PA-C 03/09/19 18:18: Course - Re-evaluation Re-evalutation: 03/09/19 18:17 Psych update: pt emotional, anxious, tearful - Vital Signs Vital signs: Temp Pulse Resp BP Pulse Ox 97.7 F 130 H 20 131/87 H 99 03/09/19 18:08 03/09/19 18:08 03/09/19 18:08 03/09/19 18:08 03/09/19 18:08 Original Note: ED Medical Screen (RME) - General Chief Complaint: Palpitations Stated Complaint: CHEST TIGHTNESS Time Seen by Provider: 03/09/19 18:13 Primary Care Provider: DAYANNA RIOS MD [Primary Care Provider] - Follow up as needed TRAVEL OUTSIDE OF THE [place] IN LAST 30 DAYS: No - HPI Notes: 03/09/19 18:15 Patient is a 23-year-old female with a history of POTS (not on meds) who presents complaining of chest tightness x2 days and sob/palpitations that began today. Patient states that she is starting to feel anxious and emotional as well. Patient states that she has experienced symptoms like this in the past, but not to this extent. Denies any prolonged immobilization, distance travel, recent surgery/trauma, personal cancer history, hormone use, smoking, or previous DVT/PE. Denies [place], fever, neck pain, URI, Abd pain, dysuria, back pain, or rash. I have treated and performed a rapid initial assessment of this patient. A comprehensive ED assessment and evaluation of the patient, analysis of test results and completion of medical decision making process will be conducted by additional ED providers. PHYSICAL EXAMINATION: GENERAL: Well-appearing, well-nourished and in no acute distress. A&Ox4. Answers questions appropriately. LUNGS: Breath sounds clear to auscultation bilaterally and equal. No wheezes rales or rhonchi. HEART: Regular rate and rhythm without murmurs, rubs, gallops. Extremities: No cyanosis, clubbing, or edema b/l. No lower extremity asymmetry. Reji negative bilaterally. NEUROLOGICAL: Normal speech, normal gait. PSYCH: Normal mood, normal affect. - Related Data Allergies/Adverse Reactions: latex [Latex] Allergy (Unknown, Verified 07/03/18 10:00) Hives Past Medical History - Past Medical History Cardiac Medical History: Denies: Hx Heart Attack, Hx Hypertension, Hx Pulmonary Embolism Pulmonary Medical History: Reports: Hx Asthma Denies: Hx Sleep Apnea, Hx Tuberculosis Neurological Medical History: Denies: Hx Cerebrovascular Accident, Hx Seizures Endocrine Medical History: Denies: Hx Hyperthyroidism, Hx Hypothyroidism Renal/ Medical History: Reports: Hx Ovarian Cysts. Denies: Hx Kidney Stones, Hx Peritoneal Dialysis GI Medical History: Denies: Hx Gastroesophageal Reflux Disease, Hx Hepatitis, Hx Hiatal Hernia, Hx Ulcer Skin Medical History: Reports Hx MRSA - ON BUTTOCKS AND RIGHT FOOT Psychiatric Medical History: Reports: Hx Bipolar Disorder - self managed, Hx Depression - POST- Denies: Hx Post Traumatic Stress Disorder, Hx Schizophrenia Infectious Medical History: Denies: Hx Hepatitis Past Surgical History: Reports: Hx Section - X1. Denies: Hx Hysterectomy, Hx Mastectomy, Hx Open Heart Surgery, Hx Pacemaker - Immunizations Immunizations up to date: Yes Hx Diphtheria, Pertussis, Tetanus Vaccination: Yes History of Influenza Vaccine for 06/2017 - 11/2017 Season: No Influenza Administration Date for 06/2017 - 11/2017 Season: 06/22/17 Physical Exam - Vital signs Vitals: Temp Pulse Resp BP Pulse Ox 97.7 F 130 H 20 131/87 H 99 03/09/19 18:08 03/09/19 18:08 03/09/19 18:08 03/09/19 18:08 03/09/19 18:08 Course - Vital Signs Vital signs: Temp Pulse Resp BP Pulse Ox 97.7 F 130 H 20 131/87 H 99 03/09/19 18:08 03/09/19 18:08 03/09/19 18:08 03/09/19 18:08 03/09/19 18:08 Doctor's Discharge - Discharge Referrals: DAYANNA RIOS MD [Primary Care Provider] - Follow up as needed
[2019-03-09] MEDS ORDERED: LORAZEPAM INJ 2 MG/1 ML VIAL IV ONE (18:18)
[2019-03-09] MEDS ORDERED: NORMAL SALINE 1000 ML 1,000 ML IV ONE (18:21)
--- NOTE | 2019-03-09 18:38 | RADIOLOGY REPORT (SQ) ---
EXAM DESCRIPTION: CHEST SINGLE VIEW COMPLETED DATE/TIME: 03/09/2019 6:27 pm REASON FOR STUDY: palp, cp COMPARISON: None. EXAM PARAMETERS: NUMBER OF VIEWS: One view. TECHNIQUE: Single frontal radiographic view of the chest acquired. RADIATION DOSE: NA LIMITATIONS: None. FINDINGS: LUNGS AND PLEURA: No opacities, masses or pneumothorax. No pleural effusion. MEDIASTINUM AND HILAR STRUCTURES: No masses. Contour normal. HEART AND VASCULAR STRUCTURES: Heart normal in size. Normal vasculature. BONES: No acute findings. HARDWARE: None in the chest. OTHER: No other significant finding. IMPRESSION: NO ACUTE RADIOGRAPHIC FINDING IN THE CHEST. TECHNICAL DOCUMENTATION: JOB ID: [id number] [employer]- All Rights Reserved Reading location - IP/workstation name: [email or web address]
[2019-03-09 18:53] LABS: ABSOLUTE LYMPHOCYTES (AUTO) 1.9 10^3/uL (0.5-4.7); ABSOLUTE MONOCYTES (AUTO) 0.3 10^3/uL (0.1-1.4); ABSOLUTE NEUT (AUTO) 4.5 10^3/uL (1.7-8.2); BASOPHILS % (AUTO) 0.6 % (0-2); EOSINOPHILS % (AUTO) 0.2 % (0-6); HEMATOCRIT 40.6 % (36.0-47.0); HEMOGLOBIN 13.3 g/dL (12.0-15.5); LYMPHOCYTES % (AUTO) 28.2 % (13-45); MEAN CORPUSCULAR HEMOGLOBIN 26.1 pg (27.0-33.4); MEAN CORPUSCULAR HGB CONC 32.9 g/dL (32.0-36.0); MEAN CORPUSCULAR VOLUME 80 fl (80-97); MONOCYTES % (AUTO) 4.1 % (3-13); PLATELET COUNT 295 10^3/uL (150-450); RED BLOOD COUNT 5.11 10^6/uL (3.72-5.28); SEGMENTED NEUTROPHILS % (AUTO) 66.9 % (42-78); TOTAL CELLS COUNTED % (AUTO) 100 %; WHITE BLOOD COUNT 6.7 10^3/uL (4.0-10.5)
[2019-03-09 19:12] LABS: ALANINE AMINOTRANSFERASE 22 U/L (9-52); ALBUMIN 4.5 g/dL (3.5-5.0); ALKALINE PHOSPHATASE 65 U/L (38-126); ANION GAP 7 (5-19); ASPARTATE AMINO TRANSFERASE 16 U/L (14-36); BILIRUBIN,DIRECT 0.1 mg/dL (0.0-0.4); BILIRUBIN,TOTAL 0.5 mg/dL (0.2-1.3); BLOOD UREA NITROGEN 7 mg/dL (7-20); CALCIUM 9.9 mg/dL (8.4-10.2); CARBON DIOXIDE 29 mmol/L (22-30); CHLORIDE 103 mmol/L (98-107); GLUCOSE 89 mg/dL (75-110); POTASSIUM 4.1 mmol/L (3.6-5.0); SODIUM 138.8 mmol/L (137-145); TOTAL PROTEIN 7.5 g/dL (6.3-8.2)
--- NOTE | 2019-03-09 20:21 | ER Document Report ---
ED General - General Chief Complaint: Palpitations Stated Complaint: CHEST TIGHTNESS Time Seen by Provider: 03/09/19 18:13 Primary Care Provider: DAYANNA RIOS MD [ACTIVE STAFF] - Follow up as needed Notes: 23-year-old female patient emergency department chief complaint of palpitations. Feeling her heart race. States that she was at home and was an argument with her boyfriend. Began to have numbness and tingling to her hands and face. Her hands begin to lock up. Denied any chest pain. States that she is not on any medications. Was getting worse so decided to come in. No other issues at this time. Still having palpitations and feeling very anxious at this time. No prior history of blood clot. No prior history of DVT or PE. No recent surgeries. TRAVEL OUTSIDE OF THE [place] IN LAST 30 DAYS: No - HPI Onset: Just prior to arrival Onset/Duration: Sudden, Constant Severity: Moderate Pain Level: Denies - Related Data Allergies/Adverse Reactions: latex [Latex] Allergy (Unknown, Verified 07/03/18 10:00) Hives Past Medical History - General Information source: Patient - Social History Smoking Status: Never Smoker Chew tobacco use (# tins/day): No Frequency of alcohol use: None Drug Abuse: None Lives with: Spouse/Significant other Family History: Reviewed & Not Pertinent Patient has suicidal ideation: No Patient has homicidal ideation: No - Past Medical History Cardiac Medical History: Denies: Hx Heart Attack, Hx Hypertension, Hx Pulmonary Embolism Pulmonary Medical History: Reports: Hx Asthma Denies: Hx Sleep Apnea, Hx Tuberculosis Neurological Medical History: Denies: Hx Cerebrovascular Accident, Hx Seizures Endocrine Medical History: Denies: Hx Hyperthyroidism, Hx Hypothyroidism Renal/ Medical History: Reports: Hx Ovarian Cysts. Denies: Hx Kidney Stones, Hx Peritoneal Dialysis GI Medical History: Denies: Hx Gastroesophageal Reflux Disease, Hx Hepatitis, Hx Hiatal Hernia, Hx Ulcer Skin Medical History: Reports Hx MRSA - ON BUTTOCKS AND RIGHT FOOT Psychiatric Medical History: Reports: Hx Bipolar Disorder - self managed, Hx Depression - POST- Denies: Hx Post Traumatic Stress Disorder, Hx Schizophrenia Infectious Medical History: Denies: Hx Hepatitis Past Surgical History: Reports: Hx Section - X1. Denies: Hx Hysterectomy, Hx Mastectomy, Hx Open Heart Surgery, Hx Pacemaker - Immunizations Immunizations up to date: Yes Hx Diphtheria, Pertussis, Tetanus Vaccination: Yes Review of Systems - Review of Systems Notes: Constitutional: denies: Chills, Diaphoresis, Fever, Malaise, Weakness EENT: denies: Eye discharge, Blurred vision, Tearing, Double vision, Nose congestion, Nose discharge, Throat swelling, Mouth pain Cardiovascular: denies: Palpitations, +Heart racing, -Orthopnea,- Dyspnea, - Chest pain Respiratory: denies: Cough, Hurts to breathe, Wheezing, Shortness of breath Gastrointestinal: denies: Abdominal pain, Diarrhea, Nausea, Vomiting, Black stools, bright red blood in stool Genitourinary: denies: Burning, Dysuria, Discharge, Frequency, Flank pain, Hematuria Musculoskeletal: denies: Joint pain, Joint swelling, Muscle pain, Muscle stiffness, back pain Hematologic/Lymphatic: denies: Anemia, Easy bleeding, Easy bruising, Blood clots Neurological/Psychological: denies: Confusion, Dementia, Depression, Loss of consciousness complaining of some anxiety Skin: No lesions, no masses, no skin breakdown, no abscesses Physical Exam - Vital signs Vitals: Temp Pulse Resp BP Pulse Ox 97.7 F 130 H 20 131/87 H 99 03/09/19 18:08 03/09/19 18:08 03/09/19 18:08 03/09/19 18:08 03/09/19 18:08 Interpretation: Tachycardic - General General appearance: Appears well, Alert - HEENT Head: Normocephalic, Atraumatic Eyes: Normal Pupils: PERRL - Respiratory Respiratory status: No respiratory distress Chest status: Nontender Breath sounds: Normal Chest palpation: Normal - Cardiovascular Rhythm: Tachycardia Heart sounds: Normal auscultation Murmur: No - Abdominal Inspection: Normal Distension: No distension Bowel sounds: Normal Tenderness: Nontender Organomegaly: No organomegaly - Back Back: Normal, Nontender - Extremities General upper extremity: Normal inspection, Nontender, Normal color, Normal ROM, Normal temperature General lower extremity: Normal inspection, Nontender, Normal color, Normal ROM, Normal temperature, Normal weight bearing. No: Reji's sign - Neurological Neuro grossly intact: Yes Cognition: Normal Orientation: AAOx4 [place] Coma Scale Eye Opening: Spontaneous [place] Coma Scale Verbal: Oriented [place] Coma Scale Motor: Obeys Commands [place] Coma Scale Total: 15 Speech: Normal Motor strength normal: LUE, RUE, LLE, RLE Sensory: Normal - Psychological Associated symptoms: Normal affect, Normal mood, Tearful - Skin Skin Temperature: Warm Skin Moisture: Dry Skin Color: Normal Course - Re-evaluation Re-evalutation: 03/09/19 22:36 Laboratory 03/09/19 03/09/19 03/09/19 18:34 18:37 18:37 WBC 6.7 RBC 5.11 Hgb 13.3 Hct 40.6 MCV 80 MCH 26.1 L MCHC 32.9 RDW 14.0 Plt Count 295 Seg Neutrophils % 66.9 Lymphocytes % 28.2 Monocytes % 4.1 Eosinophils % 0.2 Basophils % 0.6 Absolute Neutrophils 4.5 Absolute Lymphocytes 1.9 Absolute Monocytes 0.3 Absolute Eosinophils 0.0 Absolute Basophils 0.0 D-Dimer VBG pH VBG pCO2 VBG HCO3 VBG Base Excess Sodium 138.8 Potassium 4.1 Chloride 103 Carbon Dioxide 29 Anion Gap 7 BUN 7 Creatinine 0.67 Est GFR ( Amer) > 60 Est GFR (Non-Af Amer) > 60 Glucose 89 Calcium 9.9 Total Bilirubin 0.5 Direct Bilirubin 0.1 Neonat Total Bilirubin Not Reportable Neonat Direct Bilirubin Not Reportable Neonat Indirect Bili Not Reportable AST 16 ALT 22 Alkaline Phosphatase 65 Troponin I Total Protein 7.5 Albumin 4.5 TSH 1.63 Free T4 1.01 Urine Color Urine Appearance Urine pH Ur Specific [place] Urine Protein Urine Glucose (UA) Urine Ketones Urine Blood Urine Nitrite Urine Bilirubin Urine Urobilinogen Ur Leukocyte Esterase Urine WBC (Auto) Urine RBC (Auto) U Hyaline Cast (Auto) Urine Bacteria (Auto) Squamous Epi Cells Auto Urine Mucus (Auto) Urine Ascorbic Acid Urine HCG, Qual Urine Opiates Screen Urine Methadone Screen Ur Barbiturates Screen Ur Phencyclidine Scrn Ur Amphetamines Screen U Benzodiazepines Scrn Urine Cocaine Screen U Marijuana (THC) Screen 03/09/19 03/09/19 03/09/19 18:37 18:37 20:50 WBC RBC Hgb Hct MCV MCH MCHC RDW Plt Count Seg Neutrophils % Lymphocytes % Monocytes % Eosinophils % Basophils % Absolute Neutrophils Absolute Lymphocytes Absolute Monocytes Absolute Eosinophils Absolute Basophils D-Dimer < 0.27 VBG pH 7.49 H VBG pCO2 29.0 L VBG HCO3 21.7 VBG Base Excess -0.5 Sodium Potassium Chloride Carbon Dioxide Anion Gap BUN Creatinine Est GFR ( Amer) Est GFR (Non-Af Amer) Glucose Calcium Total Bilirubin Direct Bilirubin Neonat Total Bilirubin Neonat Direct Bilirubin Neonat Indirect Bili AST ALT Alkaline Phosphatase Troponin I < 0.012 Total Protein Albumin TSH Free T4 Urine Color Urine Appearance Urine pH Ur Specific [place] Urine Protein Urine Glucose (UA) Urine Ketones Urine Blood Urine Nitrite Urine Bilirubin Urine Urobilinogen Ur Leukocyte Esterase Urine WBC (Auto) Urine RBC (Auto) U Hyaline Cast (Auto) Urine Bacteria (Auto) Squamous Epi Cells Auto Urine Mucus (Auto) Urine Ascorbic Acid Urine HCG, Qual Urine Opiates Screen Urine Methadone Screen Ur Barbiturates Screen Ur Phencyclidine Scrn Ur Amphetamines Screen U Benzodiazepines Scrn Urine Cocaine Screen U Marijuana (THC) Screen 03/09/19 03/09/19 20:50 20:50 WBC RBC Hgb Hct MCV MCH MCHC RDW Plt Count Seg Neutrophils % Lymphocytes % Monocytes % Eosinophils % Basophils % Absolute Neutrophils Absolute Lymphocytes Absolute Monocytes Absolute Eosinophils Absolute Basophils D-Dimer VBG pH VBG pCO2 VBG HCO3 VBG Base Excess Sodium Potassium Chloride Carbon Dioxide Anion Gap BUN Creatinine Est GFR ( Amer) Est GFR (Non-Af Amer) Glucose Calcium Total Bilirubin Direct Bilirubin Neonat Total Bilirubin Neonat Direct Bilirubin Neonat Indirect Bili AST ALT Alkaline Phosphatase Troponin I Total Protein Albumin TSH Free T4 Urine Color YELLOW Urine Appearance SLIGHTLY-CLOUDY Urine pH 7.0 Ur Specific [place] 1.010 Urine Protein NEGATIVE Urine Glucose (UA) NEGATIVE Urine Ketones 20 H Urine Blood NEGATIVE Urine Nitrite POSITIVE H Urine Bilirubin NEGATIVE Urine Urobilinogen NEGATIVE Ur Leukocyte Esterase NEGATIVE Urine WBC (Auto) 2 Urine RBC (Auto) 0 U Hyaline Cast (Auto) 1 Urine Bacteria (Auto) TRACE Squamous Epi Cells Auto 2 Urine Mucus (Auto) MANY Urine Ascorbic Acid NEGATIVE Urine HCG, Qual NEGATIVE Urine Opiates Screen NEGATIVE Urine Methadone Screen NEGATIVE Ur Barbiturates Screen NEGATIVE Ur Phencyclidine Scrn NEGATIVE Ur Amphetamines Screen NEGATIVE U Benzodiazepines Scrn NEGATIVE Urine Cocaine Screen NEGATIVE U Marijuana (THC) Screen NEGATIVE Chest X-Ray 03/09/19 18:18 IMPRESSION: NO ACUTE RADIOGRAPHIC FINDING IN THE CHEST. Patient was seen immediately on arrival. Patient's heart rate was in the 130s. Patient appeared to be hyperventilating. Patient was placed on a nonrebreather mask to air. At VBG showed that she was indeed elevated pH with low PCO2. This would coincide with my interpretation of hyperventilatory syndrome. I did explain this to the patient. Her drug screen, cardiac labs and work-up are unremarkable. TSH free T4 negative. D-dimer normal. At this time feeling much better. Will DC in stable condition. - Vital Signs Vital signs: Temp Pulse Resp BP Pulse Ox 97.7 F 130 H 17 134/87 H 98 03/09/19 18:08 03/09/19 18:08 03/09/19 22:01 03/09/19 22:01 03/09/19 22:01 - Laboratory Result Diagrams: 03/09/19 18:37 03/09/19 18:37 Laboratory results interpreted by me: 03/09/19 03/09/19 03/09/19 18:37 20:50 20:50 MCH 26.1 L VBG pH 7.49 H VBG pCO2 29.0 L Urine Ketones 20 H Urine Nitrite POSITIVE H - EKG Interpretation by Me EKG shows normal: [place], Intervals, QRS Complexes, ST-T Waves Rate: Tachycardia Critical Care Note - Critical Care Note Total time excluding time spent on procedures (mins): 35 Comments: Tachycardia, medication administration. Rapid assessment. Patient counseling and education on her condition. Discharge - Discharge Clinical Impression: Hyperventilation syndrome, Sinus tachycardia Disposition: HOME, SELF-CARE Instructions: Benzodiazepines ([facility]), Sinus Tachycardia ([facility]), Hyperventilation ([facility]) Prescriptions: Alprazolam 0.25 mg PO TID PRN 4 Days #12 tablet PRN Reason: Anxiety/Agitation Referrals: DAYANNA RIOS MD [ACTIVE STAFF] - Follow up as needed
[2019-03-09] MEDS ORDERED: ALPRAZOLAM 0.5 MG TABLET PO ONE (20:32)
[2019-03-09 21:07] LABS: VENOUS BLOOD BASE EXCESS -0.5 mmol/L; VENOUS BLOOD HCO3 21.7 mmol/L (20-32); VENOUS BLOOD PH 7.49 (7.30-7.42)
[2019-03-09 21:18] LABS: APPEARANCE,URINE SLIGHTLY-CLOUDY; BILIRUBIN,URINE NEGATIVE (NEGATIVE); COLOR,URINE YELLOW; GLUCOSE, URINE NEGATIVE (NEGATIVE); KETONES,URINE 20 mg/dL (NEGATIVE); LEUKOCYTE ESTERASE,URINE NEGATIVE (NEGATIVE); NITRITE,URINE POSITIVE (NEGATIVE); PROTEIN,URINE NEGATIVE (NEGATIVE); UROBILINOGEN,URINE NEGATIVE mg/dL (<2.0)
[2019-03-09 21:32] LABS: FREE T4 (FREE THYROXINE) 1.01 ng/dL (0.78-2.19)
[2019-03-09 21:33] LABS: URINE AMPHETAMINES SCREEN NEGATIVE; URINE BARBITURATES SCREEN NEGATIVE; URINE BENZODIAZEPINES SCREEN NEGATIVE; URINE COCAINE SCREEN NEGATIVE; URINE MARIJUANA (THC) SCREEN NEGATIVE; URINE METHADONE SCREEN NEGATIVE; URINE PHENCYCLIDINE SCREEN NEGATIVE
[2019-03-09 21:46] LABS: THYROID STIMULATING HORMONE 1.63 uIU/mL (0.47-4.68)
[2019-03-09 22:53] VITALS: BP 131/84
--- NOTE | 2019-03-10 07:52 | EKG REPORT ---
SEVERITY:- BORDERLINE ECG - SINUS TACHYCARDIA BORDERLINE Q WAVES IN INFERIOR LEADS INFERIOR Q WAVES, PROBABLY NORMAL VARIATION : Confirmed by: Yanely Galeana MD 10-Mar-2019 07:50:53
== END 2019-03-09 23:00 | disposition home or self-care (01) ==
LOC: ER 17:57
DX: F45.8 Other somatoform disorders (principal); R00.0 Tachycardia, unspecified; R00.2 Palpitations; R07.89 Other chest pain; Z91.040 Latex allergy status; Z86.14 Personal history of Methicillin resistant Staphylococcus aureus infection
CPT/HCPCS: 93005; 99291; 96361; 96374; 36415; 84439; 84443; 85025; 81025; 80053; 81001; 84484; 80307; 85379; 82803; 71045; 93010; J3490; J2060; J7030

== ENCOUNTER 2019-12-07 13:56 | Emergency (ER) | payer MEDICAID, OTHER ==
[2019-12-07] MEDS ORDERED: PREDNISONE 20 MG TABLET PO ONE (14:07)
[2019-12-07] MEDS ORDERED: IPRATROPIUM/ALBUTEROL 0.5-2.5 MG/3 ML AMPUL NEB ONE (14:07)
--- NOTE | 2019-12-07 14:08 | ER Document Report ---
ED Respiratory Problem - General Chief Complaint: Cough Stated Complaint: COUGH/CHEST CONGESTION Time Seen by Provider: 12/07/19 14:01 Mode of Arrival: Ambulatory Information source: Patient Notes: 24-year-old female presented to ED for complaint of cough congestion short of breath wheezing. She states that her lungs feel very tight. She does have albuterol at home but does not have any steroids. TRAVEL OUTSIDE OF THE [place] IN LAST 30 DAYS: No - HPI Patient complains to provider of: Asthma Onset: Other - 2 days ago Duration: Continuous Initiating Event: URI Quality of pain: No pain Severity: None Pain Level: Denies Context: Hx asthma Short of Breath: Mild Cough: Nonproductive Sputum amount: None At home treatment: Bronchodilators Associated symptoms: Cough, Difficulty breathing, PND, Runny nose, Sore Throat Similar symptoms previously: Yes Recently seen / treated by doctor: No - Related Data Allergies/Adverse Reactions: latex [Latex] Allergy (Unknown, Verified 07/03/18 10:00) Hives Past Medical History - General Information source: Patient - Social History Smoking Status: Never Smoker Frequency of alcohol use: None Drug Abuse: None Lives with: Family Family History: Reviewed & Not Pertinent Patient has suicidal ideation: No Patient has homicidal ideation: No - Past Medical History Cardiac Medical History: Reports: None Pulmonary Medical History: Reports: Hx Asthma EENT Medical History: Reports: None Neurological Medical History: Reports: None Endocrine Medical History: Reports: None Renal/ Medical History: Reports: Hx Ovarian Cysts Malignancy Medical History: Reports: None GI Medical History: Reports: None Musculoskeletal Medical History: Reports None Skin Medical History: Reports Hx MRSA - ON BUTTOCKS AND RIGHT FOOT Psychiatric Medical History: Reports: Hx Bipolar Disorder - self managed, Hx Depression - POST- Traumatic Medical History: Reports: None Infectious Medical History: Reports: None Past Surgical History: Reports: Hx Section - X1, Hx Tubal Ligation - Immunizations Immunizations up to date: Yes Hx Diphtheria, Pertussis, Tetanus Vaccination: Yes Review of Systems - Review of Systems Constitutional: Recent illness EENT: Nose discharge, Sinus discharge, Throat pain Cardiovascular: No symptoms reported Respiratory: Cough Gastrointestinal: No symptoms reported Genitourinary: No symptoms reported Female Genitourinary: No symptoms reported Musculoskeletal: No symptoms reported Skin: No symptoms reported Hematologic/Lymphatic: No symptoms reported Neurological/Psychological: No symptoms reported -: Yes All other systems reviewed and negative Physical Exam - Vital signs Vitals: Temp Pulse Resp BP Pulse Ox 98.0 F 112 H 16 132/81 H 99 12/07/19 14:00 12/07/19 14:00 12/07/19 14:00 12/07/19 14:00 12/07/19 14:00 Interpretation: Normal - General General appearance: Appears well, Alert - HEENT Head: Normocephalic, Atraumatic Eyes: Normal Pupils: PERRL Ears: Normal External canal: Normal Tympanic membrane: Normal Sinus: Normal Nasal: Purulent discharge, Swelling Mouth/Lips: Normal Pharynx: Post nasal drainage Neck: Normal - Respiratory Respiratory status: No respiratory distress Chest status: Nontender Breath sounds: Nonproductive cough Chest palpation: Normal - Cardiovascular Rhythm: Regular Heart sounds: Normal auscultation Murmur: No - Abdominal Inspection: Normal Distension: No distension Bowel sounds: Normal Tenderness: Nontender Organomegaly: No organomegaly - Back Back: Normal, Nontender - Extremities General upper extremity: Normal inspection, Nontender, Normal color, Normal ROM, Normal temperature General lower extremity: Normal inspection, Nontender, Normal color, Normal ROM, Normal temperature, Normal weight bearing. No: Reji's sign - Neurological Neuro grossly intact: Yes Cognition: Normal Orientation: AAOx4 [place] Coma Scale Eye Opening: Spontaneous [place] Coma Scale Verbal: Oriented [place] Coma Scale Motor: Obeys Commands [place] Coma Scale Total: 15 Speech: Normal Motor strength normal: LUE, RUE, LLE, RLE Sensory: Normal - Psychological Associated symptoms: Normal affect, Normal mood - Skin Skin Temperature: Warm Skin Moisture: Dry Skin Color: Normal Course - Vital Signs Vital signs: Temp Pulse Resp BP Pulse Ox 98.0 F 99 16 122/68 98 12/07/19 14:00 12/07/19 14:06 12/07/19 14:00 12/07/19 15:23 12/07/19 15:23 Discharge - Discharge Clinical Impression: URI (upper respiratory infection) Qualifiers: URI type: unspecified viral URI Qualified Code(s): J06.9 - Acute upper respiratory infection, unspecified Asthma exacerbation Qualifiers: Asthma severity: mild Asthma persistence: unspecified Qualified Code(s): J45.901 - Unspecified asthma with (acute) exacerbation Condition: Stable Disposition: HOME, SELF-CARE Additional Instructions: ASTHMA: You have been diagnosed as having asthma. This is a condition where there is episodic tightness in the bronchial tubes. Allergies, infections, and polluted or cold air may be contributing factors. Emergency treatment of a severe asthma attack may include adrenaline shots, or bronchodilator aerosol. You may feel lightheaded, have a decreased exercise tolerance and a rapid pulse for an hour or two. Rest and get plenty of fluids. Home treatment of asthma requires bronchodilator drugs. These can be administered by injection, inhalation, or by mouth. Antibiotics and corticosteroids may be required for some patients. You should avoid chemical fumes, dusts, pollens, and exercising in very cold or dry air. If you smoke, stop!! If you develop a fever, increased wheezing, chest pain, or severe shortness of breath, you should contact the doctor immediately. STEROID MEDICATION: You have been given an injection of or oral medicine of the cortisone/steroid class. This medication is used to control inflammation or allergy. Dimitri t is usually only given for a short period of time, until the acute process subsides. There are usually no side effects from short-term use of cortisone-like medications. Some persons feel an increased sense of well-being and are not sleepy at bedtime. Long-term use of cortisone medications is best avoided, unless required for a severe condition. If your condition does not remit, or relapses after the course of corticosteroid medication, you should consult your physician. INHALED BRONCHODILATORS: You have received treatment(s) of and/or prescription for an inhaled bronchodilator -- a medication which stimulates the airways in the lung to dilate. This improves the flow of air in asthma, bronchitis, and emphysema. These medicines have some similarity to adrenaline, and can cause similar side effects: shakiness, racing heart, and a sense of nervousness. These side effects decrease with time. Contact your doctor if these side effects are severe. Do not over-use the medicine. Too-frequent use of the inhaler may make it ineffective. Call your doctor if the inhaler is not controlling your symptoms at the prescribed doses. UPPER RESPIRATORY ILLNESS: You have a viral infection of the respiratory passages -- a "cold." This common infection causes nasal congestion, drainage, and often sore throat and cough. It is highly contagious. The disease usually lasts about 10 to 14 days. There is no "cure" for the viral infection -- it must run its course. If there is a complication, such as bacterial infection in the nose, sinuses, middle ear, or bronchial tubes, antibiotics may be required. The antibiotics won't affect the virus. Drink plenty of fluids. A humidifier may help. An expectorant medication or decongestant may make you more comfortable. Use acetaminophen or ibuprofen for fever or aches. See the doctor if fever persists over two days, if there is any significant worsening of your symptoms, or if you simply fail to improve as expected. You have been recommended treatment withFlonase which is [id number] 1 spray each nostril twice a day. You could also use salt soda solution gargles. These will help to remove the drainage from the back your throat. Chloraseptic spray was [id number] that will also help with your sore throat. Salt and soda solution gargle 1 quart of water 1 tablespoon of salt 1 teaspoon of baking soda Mixed 3 ingredients together and boil for 1 minute Placed in a covered quart jar Use 1/2 ounce of cold solution to gargle 3 times a day USE OF ACETAMINOPHEN (Tylenol): Acetaminophen may be taken for pain relief or fever control. It's much safer than aspirin, offering a wider range of "safe" dosages. It is safe during . Some brand names are Tylenol, Panadol, Datril, Anacin 3, Tempra, and Liquiprin. Acetaminophen can be repeated every four hours. The following are maximum recommended dosages: >89 pounds or adults 650 mg to 900 mg Acetaminophen can be repeated every four hours. Maximum dose not to exceed 4000 mg a day. FOLLOW-UP CARE: If you have been referred to a physician for follow-up care, call the physicians office for an appointment as you were instructed or within the next two days. If you experience worsening or a significant change in your symptoms, notify the physician immediately or return to the Emergency Department at any time for re-evaluation. Prescriptions: Prednisone [Deltasone 20 mg Tablet] 3 tab PO DAILY 5 Days #15 tablet Albuterol Sulfate [Proair HFA Inhalation Aerosol 8.5 gm MDI] 2 puff IH Q4Joe PRN #1 mdi PRN Reason: Forms: Elevated Blood Pressure, Return to Work
[2019-12-07] MEDS ORDERED: ALBUTEROL SULFATE 0.083% NEB 2.5 MG/3 ML AMPUL NEB SCH (14:15)
--- NOTE | 2019-12-07 14:29 | RADIOLOGY REPORT (SQ) ---
EXAM DESCRIPTION: CHEST 2 VIEWS COMPLETED DATE/TIME: 12/07/2019 2:16 pm REASON FOR STUDY: cough short of breath COMPARISON: 03/09/2019. EXAM PARAMETERS: NUMBER OF VIEWS: two views TECHNIQUE: Digital Frontal and Lateral radiographic views of the chest acquired. RADIATION DOSE: NA LIMITATIONS: none FINDINGS: LUNGS AND PLEURA: No opacities, masses or pneumothorax. No pleural effusion. MEDIASTINUM AND HILAR STRUCTURES: No masses or contour abnormalities. HEART AND VASCULAR STRUCTURES: Heart normal size. No evidence for failure. BONES: No acute findings. HARDWARE: None in the chest. OTHER: No other significant finding. IMPRESSION: NO ACUTE RADIOGRAPHIC FINDING IN THE CHEST. TECHNICAL DOCUMENTATION: JOB ID: [id number] 2010 [email or web address] All Rights Reserved Reading location - IP/workstation name: [email or web address]
[2019-12-07 15:02] LABS: A TYPE INFLUENZA AG NEGATIVE (NEGATIVE); B INFLUENZA AG NEGATIVE (NEGATIVE)
[2019-12-07 15:25] VITALS: BP 122/68
== END 2019-12-07 15:30 | disposition home or self-care (01) ==
LOC: ER 13:56
DX: J06.9 Acute upper respiratory infection, unspecified (principal); J45.901 Unspecified asthma with (acute) exacerbation; Z91.040 Latex allergy status; Z98.51 Tubal ligation status
CPT/HCPCS: 94640 ×2; 99283; 87070; 87880; 87804; 71046; J7512; J7620